=== PATIENT | male | born 1975 | race Caucasian/White ===

== ENCOUNTER 2020-11-04 18:12 | Emergency (ER) | payer OTHER ==
[~2020-11-04 18:12] MED LIST: BACTROBAN OINT22 GM EXT; CITRATE OF MAG296 ML PO; FLEXERIL 10 MG10 MG PO; Voltaren Gel 1 % TOP; ZOFRAN4 MG PO
[2020-11-04 18:49] LABS: HEMOGLOBIN 17.6 gm/dl (14.0-17.5); RED BLOOD COUNT 5.7 M/UL (4.20-5.50); WHITE BLOOD COUNT 13.7 K/UL (4.5-11.0)
== END 2020-11-04 20:30 | disposition home or self-care (01) ==
LOC: ER1 18:12
PROVIDERS: Physician Assistant
DX: R10.84 Generalized abdominal pain (principal); K21.9 Gastro-esophageal reflux disease without esophagitis; Z90.49 Acquired absence of other specified parts of digestive tract
CPT/HCPCS: 80053; 81001; 83690; 85025; 87086; 99284

== ENCOUNTER 2021-01-27 13:43 | Inpatient (IN) | payer OTHER ==
[~2021-01-27] VITALS: Ht 170.2 cm; Wt 96.2 kg
[~2021-01-27 13:43] MED LIST changes: +AUGMENTIN 875-1 EACH PO; +PREDNISONE10 M1 PO; +TESTOSTERO200 MG/1 M IM
[2021-01-27 14:40] LABS: HEMOGLOBIN 17.4 gm/dl (14.0-17.5); RED BLOOD COUNT 5.65 M/UL (4.20-5.50); WHITE BLOOD COUNT 11.9 K/UL (4.5-11.0)
[2021-01-27 15:07] LABS: BUN/CREATININE RATIO 20 (0-10)
[2021-01-27] MEDS ORDERED: NEXIUM20 MG PO (19:42)
[2021-01-27] MEDS ORDERED: ZYRTEC10 MG PO (19:42)
[2021-01-28 07:14] LABS: RED BLOOD COUNT 5.13 M/UL (4.20-5.50)
[2021-01-28 07:27] LABS: HEMOGLOBIN 15.3 gm/dl (14.0-17.5)
[2021-01-28 10:06] LABS: HEMOGLOBIN 15.6 gm/dl (14.0-17.5); RED BLOOD COUNT 5.14 M/UL (4.20-5.50); WHITE BLOOD COUNT 13.5 K/UL (4.5-11.0)
[2021-01-29 03:53] LABS: HEMOGLOBIN 15.4 gm/dl (14.0-17.5); RED BLOOD COUNT 5.06 M/UL (4.20-5.50); WHITE BLOOD COUNT 14.6 K/UL (4.5-11.0)
[2021-01-30 08:17] LABS: HEMOGLOBIN 16.3 gm/dl (14.0-17.5); RED BLOOD COUNT 5.29 M/UL (4.20-5.50); WHITE BLOOD COUNT 13.7 K/UL (4.5-11.0)
[2021-01-31 07:57] LABS: WHITE BLOOD COUNT 10.6 K/UL (4.5-11.0)
[2021-01-31 07:58] LABS: HEMOGLOBIN 14.2 gm/dl (14.0-17.5); RED BLOOD COUNT 4.65 M/UL (4.20-5.50)
[2021-01-31] MEDS ORDERED: CIPRO500 MG PO (08:35)
[2021-01-31] MEDS ORDERED: METRONIDAZOLE500 MG PO (08:35)
== END 2021-01-31 09:33 | disposition home or self-care (01) | DRG 391 ==
LOC: ER1 13:43 → M/S 16:22 → CDU 16:22 → M/S 21:18
PROVIDERS: Physician Assistant; ADMIT Surgery
DX: K57.20 Diverticulitis of large intestine with perforation and abscess without bleeding (principal); K65.9 Peritonitis, unspecified; F17.210 Nicotine dependence, cigarettes, uncomplicated; Z20.822 Contact with and (suspected) exposure to COVID-19; Z82.49 Family history of ischemic heart disease and other diseases of the circulatory system; Z83.3 Family history of diabetes mellitus; Z90.49 Acquired absence of other specified parts of digestive tract
CPT/HCPCS: 36415; 80048; 80053; 85025; 85027; 96374; 96375; 99285; J1170; J1885; J1956; J2270; J2405; J2543; J3480; J7030; U0002

== ENCOUNTER → 2021-04-11 | Day surgery (SDC) | payer OTHER ==
[~2021-04-11] MED LIST changes: +CIPRO500 MG PO; +METRONIDAZOLE500 MG PO; +NEXIUM20 MG PO; +ZYRTEC10 MG PO
== END | disposition home or self-care (01) ==
LOC: OR 08:42
DX: Z12.11 Encounter for screening for malignant neoplasm of colon (principal); K57.30 Diverticulosis of large intestine without perforation or abscess without bleeding; Z87.19 Personal history of other diseases of the digestive system; Z90.49 Acquired absence of other specified parts of digestive tract; Z20.822 Contact with and (suspected) exposure to COVID-19
CPT/HCPCS: J2250; J2704; J7120